=== PATIENT | female | born 1985 | race Caucasian/White ===

== ENCOUNTER 2017-06-18 15:08 | Emergency (ER) | payer OTHER ==
[~2017-06-18] VITALS: Ht 162.6 cm; Wt 49.0 kg
[~2017-06-18 15:08] MED LIST: B COMPLETE1 EACH PO; CLONAZEPAM0.5 MG PO; FLUOXETINE HCL40 MG PO; HYDROCODON-ACE1 EAC7 PO; MAGNESIUM250 MG PO; METOPROLOL SUC100 MG PO; MONTELUKAST SOD10 MG PO; NASACORT PO; NASACORT10.8 ML BOTH NARES; ONDANSETRON ODT4 MG PO; PREDNISONE10 MG PO; SUMATRIPTA6 MG/0.5 M SC; SUMATRIPTAN SU100 MG PO; TOPAMAX100 MG PO; TOPAMAX50 MG PO; TRAMADOL HCL50 MG PO
[2017-06-18] MEDS ORDERED: PERCOCET 5/31 TABLET PO (15:49)
[2017-06-18] MEDS ORDERED: MOTRIN800 MG PO (15:49)
[2017-06-18 15:59] VITALS: BP 109/86
== END 2017-06-18 16:01 | disposition home or self-care (01) ==
LOC: EME 15:08
PROC: 3E0T3BZ Introduction of Anesthetic Agent into Peripheral Nerves and Plexi, Percutaneous Approach (ICD-10-PCS; principal; 2017-06-18)
DX: K08.89 Other specified disorders of teeth and supporting structures (principal); Z88.8 Allergy status to other drugs, medicaments and biological substances
CPT/HCPCS: 99281; 99284